=== PATIENT | female | born 1970 | race Caucasian/White ===

== ENCOUNTER → 2017-01-05 | Outpatient (CLI) | payer BC ==
--- NOTE | ~2017-01-05 | CR63 ---
[facility] A Service of [facility] RADIOLOGY TEXT RESULTS PATIENT: BRITTANIE COTA LOCATION: [facility] : 70 UNIT #: [id number] AGE: [address]: Jaret Schwartz MD SEX: F ORDER DR: [id number] [facility] [address] [place], [place] [address] [id number] O MR#: [id number] Acc #: [id number] NAME: BRITTANIE COTA : 1970 SEX: F STUDY DATE/TIME: 01/05/2017 11:35 UNIT: [facility] ROOM: STUDY DESCRIPTION: CR Chest 2 View Attending Physician: Jaret Schwartz M.D. Ordering Physician: Jaret Schwartz M.D. Primary Care Physician: Bryon Romero M.D. MEDICAL IMAGING REPORT This report is preliminary unless electronic signature is present EXAM Chest x-ray HISTORY Cough and congestion for the past week. TECHNIQUE 2 views of the chest were obtained. FINDINGS 2 views of the chest show no bony abnormalities. The heart and mediastinum have a normal configuration. In the lungs there is an infiltrate seen in the right middle lobe anteriorly, best seen on the lateral view. The left lung is clear. No pleural fluid is seen. IMPRESSION Dense right middle lobe infiltrate. Given the patient's symptoms, this most likely represents pneumonia. Attempt will be made to call this information by telephone at the time of this dictation. Dictated by... Lokesh Lewis M.D. THIS IS AN ELECTRONICALLY VERIFIED REPORT Lokesh Lewis M.D. at 01/07/2017 11:00 AM Lavonne TD: 01/06/2017 10:30 JOB #: [id number] MEDICAL IMAGING REPORT Page 1 of 1 COPY
== END | disposition home or self-care (01) ==
LOC: CRAD 11:23
DX: J18.9 Pneumonia, unspecified organism (principal)
CPT/HCPCS: 71020

== ENCOUNTER → 2017-01-27 | Outpatient (CLI) | payer BC ==
--- NOTE | ~2017-01-27 | CR63 ---
[facility] A Service of [facility] & [facility] RADIOLOGY TEXT RESULTS PATIENT: BRITTANIE COTA LOCATION: [facility] : 70 UNIT #: [id number] AGE: [address]: Jaret cShwartz MD SEX: F ORDER DR: [id number] [facility] [address] [place], [place] [address] [id number] O MR#: [id number] Acc #: [id number] NAME: BRITTANIE COTA : 1970 SEX: F STUDY DATE/TIME: 01/27/2017 16:45 UNIT: [facility] ROOM: STUDY DESCRIPTION: CR Chest 2 View Attending Physician: Jaret Schwartz M.D. Referring Physician: Jaret Schwartz M.D. Ordering Physician: Jaret Schwartz M.D. Primary Care Physician: Bryon Romero M.D. MEDICAL IMAGING REPORT This report is preliminary unless electronic signature is present EXAM Chest PA and lateral 01/27/2017 HISTORY Cough for 2 months. Smoking history. Followup right middle lobe pneumonia. FINDINGS The heart is normal in size. The lungs are hyperinflated with emphysematous and fibrotic changes characteristic of COPD. There has been interval decrease in the right middle lobe pneumonia. Minimal infiltrate does persist. Lungs are otherwise clear. There are no pleural effusions. IMPRESSION Decrease in the right middle lobe pneumonia compared with 01/05/2017. Dictated by... Joseph Bills M.D. THIS IS AN ELECTRONICALLY VERIFIED REPORT Joseph Bills M.D. at 01/29/2017 8:18 AM KARISHMA/michaela TD: 01/27/2017 23:11 JOB #: [id number] MEDICAL IMAGING REPORT Page 1 of 1 COPY
== END | disposition home or self-care (01) ==
LOC: CRAD 16:34
DX: J18.9 Pneumonia, unspecified organism (principal)
CPT/HCPCS: 71020

== ENCOUNTER → 2017-02-16 | Outpatient (CLI) | payer BC ==
--- NOTE | ~2017-02-16 | CR63 ---
[facility] A Service of [facility] RADIOLOGY TEXT RESULTS PATIENT: BRITTANIE COTA LOCATION: [facility] : 70 UNIT #: [id number] AGE: [address]: Jaret Schwartz MD SEX: F ORDER DR: [id number] [facility] [address] [place], [place] [address] [id number] O MR#: [id number] Acc #: [id number] NAME: BRITTANIE COTA : 1970 SEX: F STUDY DATE/TIME: 02/16/2017 18:23 UNIT: [facility] ROOM: STUDY DESCRIPTION: CR Chest 2 View Attending Physician: Jaret Schwartz M.D. Ordering Physician: Jaret Schwartz M.D. Primary Care Physician: Jaret Schwartz M.D. MEDICAL IMAGING REPORT This report is preliminary unless electronic signature is present EXAM Chest 2 views 02/16/2017 HISTORY 46-year-old female with cough and shortness of breath for 2.5 weeks. Follow up pneumonia. COMPARISON Chest x-rays 01/05/2017 at 14:17. FINDINGS 2 views of the chest demonstrate continued interval decrease in right middle lobe infiltrate. Minimal infiltrate persists. Lungs are otherwise clear. No pleural effusion or pneumothorax. Heart size and mediastinum within normal limits. Pulmonary vasculature unremarkable. IMPRESSION Continued interval improvement in right middle lobe infiltrate with minimal persistent infiltrate seen on today's exam. No other acute chest findings. Dictated by... Malik Berrios M.D. THIS IS AN ELECTRONICALLY VERIFIED REPORT Malik Berrios M.D. at 02/18/2017 6:38 PM ERIN/maria luisa TD: 02/17/2017 09:00 JOB #: [id number] MEDICAL IMAGING REPORT [facility] A Service of [facility] & [facility] RADIOLOGY TEXT RESULTS PATIENT: BRITTANIE COTA LOCATION: [facility] : 70 UNIT #: [id number] AGE: [address]: Jaret Schwartz MD SEX: F ORDER DR: Page 1 of 1 COPY
== END | disposition home or self-care (01) ==
LOC: CRAD 18:14
DX: J18.9 Pneumonia, unspecified organism (principal); R91.8 Other nonspecific abnormal finding of lung field
CPT/HCPCS: 71020